=== PATIENT | female | born 1950 | race Caucasian/White ===

== ENCOUNTER 2016-11-03 12:00 | Observation (INO) ==
[2016-11-03] MEDS ORDERED: Nitroglycerin 0.4 MG TAB.SUBL SL PRN (12:23)
--- NOTE | 2016-11-03 12:27 | Emergency Department Note ---
Disposition Clinical Impression: Chest pain Qualifiers: Chest pain type: unspecified Qualified Code(s): R07.9 - Chest pain, unspecified Disposition: Admitted As Inpatient Condition: Good Forms: ED Satisfaction Letter Time of Disposition: 13:44 Chest Pain HPI - General Chief Complaint: ED Chest Pain Stated Complaint: CP x3days Time Seen by Provider: 11/03/16 12:16 Source: patient, family Mode of arrival: ambulatory Limitations: no limitations Vital Signs Reviewed: Yes Nursing Notes Reviewed: Yes - History of Present Illness HPI Narrative: Intermittent left-sided chest pain "like my bra was too tight" over the past 3 days. Worse with exertion. Better with rest. Associated nausea and dyspnea. Pain radiates to her back. History of myocardial infarction last year during which she underwent a cardiac catheterization without stent deployment. She has a prescription for nitroglycerin but did not take. She took an aspirin prehospital Pt complaint: chest pain Onset (ago): day(s) Duration: intermittent Onset: during exertion Pain Location: left chest Severity: moderate Severity scale (1-10): 4 Quality: tightness, aching Pain Radiation: back Improves with: rest Worsens with: exertion Associated symptoms: Reports: nausea, diaphoresis Treatments prior to arrival chest pain: aspirin - Related Data Home Medications Medication Instructions Recorded Confirmed ALPRAZolam [Xanax 0.5 MG Tablet] 0.5 mg PO BID 04/06/16 04/06/16 Aspirin [Lo-Dose Aspirin EC] 81 mg PO DAILY 04/06/16 04/06/16 Guaifenesin/Dm/Pseudoephedrine 250 mg PO PRN PRN 04/06/16 04/06/16 [Capmist Dm Tablet] Levothyroxine [Synthroid] 50 mcg PO 0630 04/06/16 04/06/16 Metformin HCl [Fortamet] 1,000 mg PO DAILY 04/06/16 04/06/16 Metoprolol Succinate 25 mg PO DAILY 04/06/16 04/06/16 Ranitidine HCl [Acid Port Engineer] 150 mg PO BID 04/06/16 04/06/16 Simvastatin [Zocor] 40 mg PO HS 04/06/16 04/06/16 Topiramate [Topiramate ER] 25 mg PO DAILY 04/06/16 04/06/16 levoFLOXacin [Levaquin] 500 mg PO DAILY 04/06/16 04/06/16 Allergies Allergy/AdvReac Type Severity Reaction Status Date / Time Sulfa (Sulfonamide AdvReac Itching Verified 11/03/16 12:05 Antibiotics) All systems ED: reviewed and negative except as stated. Constitutional: Reports: as per HPI Eyes: Reports: as per HPI ENT ED: Reports: as per HPI Cardiovascular: Reports: chest pain Respiratory: Reports: dyspnea Gastrointestinal: Reports: nausea Genitourinary: Reports: as per HPI Musculoskeletal: Reports: back pain Integumentary: Reports: as per HPI Neurological: Reports: as per HPI Psychiatric: Reports: as per HPI Endocrine: Reports: as per HPI Hematological/Lymphatic: Reports: as per HPI Allergic/Immunologic: Reports: as per HPI Chest Pain PMH - Past Medical History Medical history: Reports: arthritis, DVT, diabetes, fibromyalgia, hyperlipidemia , pulmonary embolus Surgical history: Reports: cataract Psychiatric history: Reports: anxiety, depression 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 - Social History Smoking Status: Never smoker Alcohol use: Reports: none Drug use: Reports: none Physical Exam - General Limitations: no limitations General appearance: alert - Head Head exam: atraumatic - Eye Eye exam: Present: normal appearance - ENT ENT exam: normal exam - Neck Neck exam: Present: normal inspection, full ROM - Chest Chest inspection: Present: normal inspection, symmetric chest wall rise - Respiratory Respiratory exam: Present: normal lung sounds bilaterally - Cardiovascular Cardiovascular exam: Present: regular rate, normal rhythm, normal heart sounds - Rectal Exam Rectal exam: Present: deferred - Extremities Exam Extremities exam: Present: normal inspection - Neurological Exam Neurological exam: Present: alert, oriented X3, CN II-XII intact - Psychiatric Psychiatric exam: Present: normal affect, normal mood - Skin Skin exam: Present: warm, dry, intact Course Course Narrative: Patient presents to the emergency department with intermittent exertional chest discomfort over the past 3 days. EKG reviewed by me. Patient appears in no acute distress. Workup including chest x-ray, labs and reevaluation initiated - Reevaluation(s) Reevaluation #1: Patient states her discomfort was relieved with sublingual nitroglycerin Vital Signs Temperature 98 F 11/03/16 12:05 Pulse Rate 72 11/03/16 12:05 Respiratory Rate 20 11/03/16 12:05 Blood Pressure 139/83 11/03/16 12:05 O2 Sat by Pulse Oximetry 98 11/03/16 12:05 Temperature 98 F 11/03/16 12:05 Pulse Rate 72 11/03/16 12:05 Respiratory Rate 20 11/03/16 12:05 Blood Pressure 139/83 11/03/16 12:05 O2 Sat by Pulse Oximetry 98 11/03/16 12:05 Oxygen Delivery Oxygen Delivery Room Air Chest Pain - Medical Records Medical records reviewed: Yes I reviewed the patient's medical records. Catheter lab report dated March 2016 results reviewed by me - Lab Data Lab results reviewed: Yes I reviewed the patient's lab results. Result diagrams: 11/03/16 12:41 11/03/16 12:41 Lab Results 11/03/16 11/03/16 11/03/16 Range/Units 12:41 12:41 12:41 WBC 4.4 (4.3-11.1) K/mcL RBC 4.09 (3.82-4.97) M/mcL Hgb 11.7 (11.5-15.4) g/dL Hct 36.1 (35.3-44.9) % MCV 88.3 (83.0-100.0) fL MCH 28.6 (28.0-33.3) pg MCHC 32.4 (31.6-35.5) g/dL RDW 12.2 (11.5-14.5) % Plt Count 206 (140-400) K/mcL MPV 10.2 (9.4-12.4) fL Immature Gran % 0.5 (0-4) % Seg Neutrophils % 43.4 % Lymphocytes % 44.8 % Monocytes % 10.2 % Eosinophils % 1.1 % Basophils % 0.0 % Neutrophils # 1.9 (1.6-8.9) K/mcL Lymphocytes # 2.0 (0.6-4.6) K/mcL Monocytes # 0.5 (0.0-1.3) K/mcL Eosinophils # 0.1 (0.0-0.6) K/mcL Basophils # 0.0 (0.0-0.2) K/mcL Sodium 140 (136-145) mEq/L Potassium 4.7 H (3.5-4.5) mEq/L Chloride 108 (98-109) mEq/L Carbon Dioxide 28 (19-29) mEq/L BUN 21 H (7-20) mg/dL Creatinine 0.91 (0.57-1.11) mg/dL Est GFR ( Amer) > 60 (> 60) Est GFR (Non-Af Amer) > 60 (> 60) BUN/Creatinine Ratio 23 (6-26) Glucose 105 H (70-99) mg/dL Calculated Osmolality 293 (280-300) Calcium 9.6 (8.6-10.8) mg/dL Total Bilirubin 0.4 (0.2-1.2) mg/dL AST 18 (5-34) Units/L ALT 17 (0-55) Units/L Alkaline Phosphatase 54 (38-126) Units/L Troponin I 0.00 (0-0.03) ng/mL Serum Total Protein 7.3 (6.0-8.3) g/dL Albumin 3.9 (3.5-5.0) g/dL Globulin 3.4 (2.4-3.5) g/dL Albumin/Globulin Ratio 1.1 (1.1-2.2) - Radiology Data Radiology results reviewed: Yes I reviewed the patient's radiology results. - EKG Data EKG attestation: Yes I reviewed and interpreted this EKG. EKG results narrative: Normal sinus rhythm with left axis deviation and left bundle-branch block rate 65 RI 188 QRS 147 QT/QTC 411/423. Heart Score - Score History: Moderately Suspicious EKG: Normal Age: Greater than 65 Risk Factors: 1-2 risk factors Troponin: Less than normal limit HEART Score Total: 4
[2016-11-03 13:16] LABS: Eosinophils # 0.1 K/mcL (0.0-0.6); Eosinophils % 1.1 %; Hematocrit 36.1 % (35.3-44.9); Hemoglobin 11.7 g/dL (11.5-15.4); Immature Granulocytes % 0.5 % (0-4); Lymphocytes % 44.8 %; Mean Corpuscular HGB Conc 32.4 g/dL (31.6-35.5); Mean Corpuscular Hemoglobin 28.6 pg (28.0-33.3); Mean Corpuscular Volume 88.3 fL (83.0-100.0); Mean Platelet Volume 10.2 fL (9.4-12.4); Monocytes # 0.5 K/mcL (0.0-1.3); Monocytes % 10.2 %; Neutrophils # 1.9 K/mcL (1.6-8.9); Platelet Count 206 K/mcL (140-400); Red Blood Count 4.09 M/mcL (3.82-4.97); Red Cell Distribution Width 12.2 % (11.5-14.5); Segmented Neutrophils % 43.4 %
[2016-11-03 13:32] LABS: Alanine Aminotransferase 17 Units/L (0-55); Albumin 3.9 g/dL (3.5-5.0); Albumin/Globulin Ratio 1.1 (1.1-2.2); Alkaline Phosphatase 54 Units/L (38-126); Aspartate Amino Transferase 18 Units/L (5-34); BUN/Creatinine Ratio 23 (6-26); Bilirubin,Total 0.4 mg/dL (0.2-1.2); Blood Urea Nitrogen 21 mg/dL (7-20); Calcium 9.6 mg/dL (8.6-10.8); Carbon Dioxide 28 mEq/L (19-29); Chloride 108 mEq/L (98-109); Globulin 3.4 g/dL (2.4-3.5); Glucose 105 mg/dL (70-99); Osmolality,Calculated 293 (280-300); Potassium 4.7 mEq/L (3.5-4.5); Sodium 140 mEq/L (136-145); Total Protein 7.3 g/dL (6.0-8.3); eGFR For African Americans > 60 (> 60); eGFR For Non-African Americans > 60 (> 60)
[2016-11-03] MEDS ORDERED: Acetaminophen 325 MG TABLET PO PRN (15:36)
[2016-11-03] MEDS ORDERED: Ondansetron ODT 4 MG TAB.RAPDIS SL PRN (15:36)
[2016-11-03] MEDS ORDERED: Naloxone 0.4 MG/ML INJ IVP PRN (15:36)
[2016-11-03] MEDS ORDERED: ALPRAZolam 0.5 MG TABLET PO PRN (15:39)
[2016-11-03] MEDS ORDERED: *HR* Dextrose 50 % in Water (Syg) 50 ML SYRINGE IVP PRN (15:41)
[2016-11-03] MEDS ORDERED: D5% in Water 1,000 ML IVC PRN (15:41)
[2016-11-03] MEDS ORDERED: Dextrose Gel 15 GM PO PRN ×2 (15:41)
[2016-11-03] MEDS ORDERED: *HR* Morphine 2 MG/ML SYRINGE IVP PRN (16:22)
--- NOTE | 2016-11-03 16:25 | Event Note ---
Date of Encounter: 11/03/16 Time of Encounter: 16:23 1. Chest pain with history of CAD, consider stress cardiomyopathy? Continue telemetry, nitroglycerin and morphine as needed Continue aspirin, statin, check lipid panel Follow troponins. Order an echocardiogram, may schedule stress test in the morning 2. Diabetes type 2 not insulin-dependent Hold metformin and continue sliding scale 3. Anxiety, continue Xanax as needed 4. Remote history of DVT 5. History of systolic CHF, no exacerbation Omeprazole for GI prophylaxis and Lovenox for DVT prophylaxis. The patient will be admitted for observation. Full code. Time spent on this admission 40 minutes. H&P to be written by Poonam Mancilla NP
[2016-11-03] MEDS: *HR* OxyCODONE/APAP 10/325 TABLET PO SCH ×2 (17:32→21:56)
--- NOTE | 2016-11-03 18:22 | Internal Med History&Physical ---
<Poonam Mancilla M - Last Filed: 11/04/16 00:12> Date of Encounter: 11/04/16 Time of Encounter: 18:19 Assessment and Plan (1) Chest pain Current visit: Yes Status: Acute Patient reports intermittent left-sided chest pain radiating to her left shoulder accompanied by nausea, shortness of breath, diaphoresis, over the last several days. Pain was relieved by nitroglycerin in the ER. Patient had cardiac catheter in March 2012, which showed normal coronary arteries, an EF of 65%. Previous stress test in November 2015 was negative for ischemia or infarct with EF of 65%. Echocardiogram in November of last year showed EF of 45- 50% with mild global systolic dysfunction. EKG showed normal sinus rhythm with old left bundle branch block and no changes from previous, initial troponin negative at 0.00 Continuous surveillance system monitor Serial troponins Nitro and morphine PRN for chest pain. continue aspirin and statin lipid panel with morning labs. echocardiogram and stress test in the morning. Qualifiers: Chest pain type: unspecified Qualified Code(s): R07.9 - Chest pain, unspecified (2) Type 2 diabetes mellitus Current visit: Yes Status: Acute Well-controlled as evidenced by hemoglobin A1c of 6.0% in December of last year. Hold metformin Diabetic diet Check blood sugars before meals and at bedtime Sliding scale insulin before meals at bedtime Hypoglycemic protocol Qualifiers: Diabetes mellitus complication status: without complication Diabetes mellitus correction insulin use: without correction use Qualified Code(s): E11.9 - Type 2 diabetes mellitus without complications (3) Anxiety Current visit: Yes Status: Acute continue home dose of Xanax as needed. (4) DVT prophylaxis Current visit: Yes Status: Acute anti-embolic stockings Lovenox SQ daily Internal Medicine - H&P: HPI Chief complaint: chest pain Admitted From: Emergency Dept Plans for Post Hospital Care: Home History of present illness: Ms. Harley is a 66 year old female with hypertension, diabetes, history of DVT and PE, COPD presents emergency department today with left-sided chest pain. Patient reports that she has had intermittent pain on the left side of her chest radiating to her left shoulder for the last 3 days. She had accompanying shortness of breath, diaphoresis, and nausea, and palpitations. She reports a headache as well. Patient reports that her pain was relieved with nitroglycerin this morning given in the ED. She denies any vomiting, abdominal pain, numbness or tingling. Evaluation emergency department included an EKG which showed normal sinus rhythm with old left bundle branch block. Troponin was negative at 0.00. Chest x-ray showed no acute process. Labs are grossly normal. On exam, patient alert and oriented, in no acute distress. Heart had regular rate and rhythm, lungs were clear bilaterally to auscultation, no peripheral edema. Past Med Surg Social Fam HX - Past Medical History Medical history: arthritis, DVT, diabetes, fibromyalgia, hyperlipidemia, hypertension, osteoporosis, pulmonary embolus Psychiatric history: anxiety, depression - Past Surgical History Surgical History: cataract, hysterectomy, pacemaker - Social History Smoking Status: Never smoker Smokeless Tobacco Status: No Alcohol use: none Drug use: none - Family History Mother Living Status: Cause of : lung CA Hx Family Cancer: Yes Internal Medicine - H&P: Meds ALPRAZolam [Xanax 0.5 MG Tablet] 0.5 mg PO TID PRN 04/06/16 [History] Aspirin [Lo-Dose Aspirin EC] 81 mg PO DAILY 04/06/16 [History] Levothyroxine [Synthroid] 50 mcg PO 0630 04/06/16 [History] Metformin HCl [Fortamet] 500 mg PO DAILY 04/06/16 [History] Metoprolol Succinate 25 mg PO DAILY 04/06/16 [History] Ranitidine HCl [Acid Top Knitter] 150 mg PO BID 04/06/16 [History] Simvastatin [Zocor] 40 mg PO HS 04/06/16 [History] Topiramate [Topiramate ER] 25 mg PO DAILY 04/06/16 [History] Meloxicam [Mobic] 15 mg PO DAILY 11/03/16 [History] Oxycodone HCl/Acetaminophen [Percocet 10-325 mg Tablet] 1 tab PO QID 11/03/16 [ History] Allergies Sulfa (Sulfonamide Antibiotics) Adverse Reaction (Verified 11/03/16 12:05) Itching All Systems PM: A 10-system review of systems was performed and is negative for pertinent findings except as documented above in the HPI. - Constitutional Constitutional: no chills, no fever(s), no night sweats - EENT Eyes: no change in vision, no discharge, no pain, no photophobia Ears: no ear discharge, no ear pain, no tinnitus Nose, mouth and throat: no dysphagia, no nasal discharge, no neck pain, no sore throat - Cardiovascular Cardiovascular ROS IM: chest pain, diaphoresis, dyspnea, dyspnea on exertion, palpitations, no lightheadedness, no syncope - Respiratory Respiratory: no cough, no dyspnea, no wheezing, no excessive phlegm production - Gastrointestinal Gastrointestinal: nausea, no abdominal pain, no diarrhea, no hematemesis, no hematochezia, no melena, no vomiting - Genitourinary Genitourinary: no change in urinary stream, no dysuria, no flank pain, no hematuria - Musculoskeletal Musculoskeletal ROS IM: no numbness, no tingling - Integumentary Integumentary IM: no rash, no unusual bruising - Neurological Neurological ROS: no confusion, no convulsions, no focal weakness, no numbness, no tingling, no tremor(s) - Hematologic/Lymphatic Hematologic/Lymphatic: no easy bruising - Constitutional Vitals: Temp Pulse Resp BP Pulse Ox 97.9 F 60 16 123/66 97 11/03/16 16:32 11/03/16 16:32 11/03/16 16:32 11/03/16 16:32 11/03/16 16:32 General appearance: Present: A&O X 3, pleasant, no acute distress - Head Head exam: Present: atraumatic, normocephalic - Eye Eye exam: Present: PERRL, conjuntiva pink, sclera anicteric Pupils: Present: PERRL - Neck Neck exam general surgery: Present: supple, trachea midline. Absent: lymphadenopathy - Respiratory Respiratory exam: Present: CTAB. Absent: accessory muscle use, rales, rhonchi, wheezes - Cardiovascular Cardiovascular exam: Present: RRR, +S1, +S2. Absent: diastolic murmur, gallop, rubs, systolic murmur - GI/Abdominal GI/Abdominal exam: Present: normal bowel sounds, soft, no peritoneal signs. Absent: distended, tenderness - Extremities Exam Extremities exam: Present: warm, radial pulses palpable and symetrical. Absent : calf tenderness, cyanotic, pedal edema - Neurological Exam Neurological exam: Present: CN II-XII intact, oriented X3, no focal deficits. Absent: facial droop, speech deficit - Skin Skin exam: Present: dry, intact Internal Med - H&P Results - Labs CBC & Chem 7: 11/03/16 12:41 11/03/16 12:41 Labs: Chest X-Ray 11/03/16 12:23 IMPRESSION: No acute process. D/ / Leo Valderrama MD / Leo Valderrama MD Interpreting Provider: Leo Valderrama MD <Rodolfo Kaur H - Last Filed: 11/04/16 10:21> Date of Encounter: 11/04/16 Internal Medicine - H&P: HPI History of present illness: Ms. Harley is a 66 year old female All Systems PM: A 10-system review of systems was performed and is negative for pertinent findings except as documented above in the HPI. - Constitutional Vitals: Temp Pulse Resp BP Pulse Ox 97.7 F 57 18 116/64 97 11/04/16 04:44 11/04/16 04:44 11/04/16 09:46 11/04/16 09:46 11/04/16 04:44 Internal Med - H&P Results - Labs CBC & Chem 7: 11/04/16 01:56 11/04/16 01:56 Labs: Short CBC 11/04/16 Range/Units 01:56 WBC 4.0 L (4.3-11.1) K/mcL Hgb 10.7 L (11.5-15.4) g/dL Hct 33.8 L (35.3-44.9) % Plt Count 158 (140-400) K/mcL Neutrophils # 1.4 L (1.6-8.9) K/mcL BMP 11/04/16 01:56 Sodium 140 Potassium 3.9 Chloride 108 Carbon Dioxide 27 BUN 19 Creatinine 0.86 Glucose 148 H Calcium 9.2 Cardiac Enzymes 11/03/16 11/04/16 Range/Units 18:37 01:56 Troponin I 0.00 0.00 (0-0.03) ng/mL - Attending Attestation 1. Chest pain with history of CAD, consider stress cardiomyopathy? Continue telemetry, nitroglycerin and morphine as needed Continue aspirin, statin, check lipid panel Follow troponins. Order an echocardiogram, may schedule stress test in the morning 2. Diabetes type 2 not insulin-dependent Hold metformin and continue sliding scale 3. Anxiety, continue Xanax as needed 4. Remote history of DVT 5. History of systolic CHF, no exacerbation Omeprazole for GI prophylaxis and Lovenox for DVT prophylaxis. The patient will be admitted for observation. Full code. Time spent on this admission 40 minutes. I have personally performed a face to face evaluation on this patient. I have reviewed and agree with the care plan.
[2016-11-03] MEDS: Insulin LISPRO 300 UNITS/3 ML VIAL SQ SCH (19:58)
[2016-11-03] MEDS ORDERED: Insulin LISPRO 300 UNITS/3 ML VIAL SQ SCH (21:00)
[2016-11-03] MEDS ORDERED: Famotidine 20 MG TABLET PO SCH (21:00)
[2016-11-04 02:31] LABS: Basophils % 0.2 %; Eosinophils # 0.1 K/mcL (0.0-0.6); Eosinophils % 1.2 %; Hematocrit 33.8 % (35.3-44.9); Hemoglobin 10.7 g/dL (11.5-15.4); Immature Granulocytes % 0.2 % (0-4); Lymphocytes # 2.2 K/mcL (0.6-4.6); Lymphocytes % 54.2 %; Mean Corpuscular HGB Conc 31.7 g/dL (31.6-35.5); Mean Corpuscular Hemoglobin 27.9 pg (28.0-33.3); Mean Platelet Volume 10.8 fL (9.4-12.4); Monocytes # 0.3 K/mcL (0.0-1.3); Monocytes % 8.5 %; Neutrophils # 1.4 K/mcL (1.6-8.9); Platelet Count 158 K/mcL (140-400); Red Blood Count 3.84 M/mcL (3.82-4.97); Segmented Neutrophils % 35.7 %
[2016-11-04 02:45] LABS: BUN/Creatinine Ratio 22 (6-26); Blood Urea Nitrogen 19 mg/dL (7-20); Calcium 9.2 mg/dL (8.6-10.8); Carbon Dioxide 27 mEq/L (19-29); Chloride 108 mEq/L (98-109); Glucose 148 mg/dL (70-99); Osmolality,Calculated 295 (280-300); Potassium 3.9 mEq/L (3.5-4.5); Sodium 140 mEq/L (136-145); eGFR For African Americans > 60 (> 60); eGFR For Non-African Americans > 60 (> 60)
[2016-11-04 02:46] LABS: Chol/HDL Ratio 3.4 (0-4.9)
[2016-11-04] MEDS ORDERED: *HR* Enoxaparin 40 MG/0.4 ML SYRINGE SQ SCH (06:00)
[2016-11-04] MEDS ORDERED: Regadenoson 0.4 MG/5 ML SYRINGE IVP ONE (07:43)
[2016-11-04] MEDS ORDERED: *HR* OxyCODONE/APAP 10/325 TABLET PO PRN (08:49)
[2016-11-04] MEDS ORDERED: *HR* Morphine 2 MG/ML SYRINGE IVP PRN (08:49)
[2016-11-04] MEDS ORDERED: Famotidine 20 MG TABLET PO SCH (08:50)
[2016-11-04] MEDS ORDERED: Topiramate 25 MG TABLET PO SCH (09:00)
[2016-11-04] MEDS ORDERED: Aspirin Enteric Coated 81 MG Tablet PO SCH (09:00)
[2016-11-04] MEDS ORDERED: Metoprolol XL (24 HR) Succ 25 MG TAB.ER.24H PO SCH (09:00)
[2016-11-04] MEDS: Insulin LISPRO 300 UNITS/3 ML VIAL SQ SCH (09:39)
[2016-11-04 09:51] VITALS: BP 116/64
--- NOTE | 2016-11-04 10:32 | Nuclear Medicine Stress Report ---
Regadenoson Nuclear Stress Name: Aretha Harely Date of Study: 11/04/2016 Date: 1950 Ht: 74.0 in Medical Record#: [id number] Age: 66 Wt: 162.0 lb Gender: Female Order #: [id number] Location: [facility] Room: [facility] [place] Supervising Provider: Kate Epperson CNP Reading Physician: Lety Rees DO Ordering Physician: Rodolfo Kaur MD Primary Care Physician: Michael Samuels MD Stress Technologist: Cris Cunningham RRT Respite Worker: Jabier Peace Indications: Chest Pain Impression: Perfusion imaging was negative for ischemia or infarct. Low level exercise ECG is non-diagnostic for ischemia due to baseline abnormalities. Gated EF = >70%. History: Diabetes Stress Test Summary: Stress Test Type: Low level pharmacologic Regadenoson 0.4mg/5ml given IV Baseline Information: Initial Heart Rate: 63 Blood Pressure: 110/76 Stress Information: Test Terminated Due to (primary): As per protocol Maximum Blood Pressure: 90/66 Maximum Heart Rate: 126 Percent Maximum Heart Rate Achieved: 88 Double Product: [id number] METS Reached: 2.1 Symptoms: No chest symptoms Nuclear Summary: SPECT myocardial perfusion imaging using [id number] Sestamibi given intravenously was performed at rest and following cardiac stress testing. The resting images were obtained following initial dose of 10.8 mCi. Following stress an additional dose of 32.9 mCi was given at peak exercise or 30 seconds post regadenoson infusion. Medication Given: Time Medication Dose Units Route Findings: Stress Note * Resting ECG demonstrated normal sinus rhythm with LBBB, poor R wave progression with nonspecific ST-T wave abnormalities. * Pharmacologic stress ECG is non diagnostic for ischemia due to baseline abnormalities. Also noticed is artifact during the procedure. * No arrhythmias were noted during stress. * Patient had no chest pain during stress. Hemodynamic responses * Blood pressure decreased with pharmacologic infusion, which can be a normal side effect. Starting BP 110/76 mmHg decreasing to 88/60 mmHg which improved with IV fluids. Study Quality * Study quality was fair. TID * No evidence of transient ischemic dilatation. Lung Uptake * There is no evidence of increase lung uptake. Left Ventricle * The left ventricle is not dilated. PERFUSION *Normal rest and stress perfusion without evidence for ischemia or infarct. Gated EF > 70% * Gated EF > 70%. Updated by Lety Rees on 11/04/2016 10:21:28 AM electronically signed on 11/04/2016 10:24:44 AM with status of Final
--- NOTE | 2016-11-04 10:44 | Discharge Summary ---
<MarleenAdam oliveira - Last Filed: 11/04/16 11:48> Date of Encounter: 11/04/16 Time of Encounter: 10:41 - Discharge Diagnosis (1) Chest pain Priority: Primary Status: Acute Comments: The causes include musculoskeletal, anxiety, cardiac workup negative for acute process. Qualifiers: Chest pain type: intercostal pain Qualified Code(s): R07.82 - Intercostal pain (2) Anxiety Priority: Primary Status: Acute Comments: Chronic anxiety with recent exacerbation including 2 recent deaths in the family (3) Type 2 diabetes mellitus Priority: Primary Status: Chronic Qualifiers: Diabetes mellitus complication status: without complication Diabetes mellitus director long term care insulin use: without fdc use Qualified Code(s): E11.9 - Type 2 diabetes mellitus without complications (4) COPD (chronic obstructive pulmonary disease) Priority: Secondary Status: Chronic Qualifiers: COPD type: unspecified COPD Qualified Code(s): J44.9 - Chronic obstructive pulmonary disease, unspecified (5) DVT prophylaxis Priority: Primary Status: Acute - Discharge Medications Home Medications: ALPRAZolam [Xanax 0.5 MG Tablet] 0.5 mg PO TID PRN 04/06/16 [History] Aspirin [Lo-Dose Aspirin EC] 81 mg PO DAILY 04/06/16 [History] Levothyroxine [Synthroid] 50 mcg PO 0630 04/06/16 [History] Metformin HCl [Fortamet] 500 mg PO DAILY 04/06/16 [History] Metoprolol Succinate 25 mg PO DAILY 04/06/16 [History] Ranitidine HCl [Acid Cleaning Professional] 150 mg PO BID 04/06/16 [History] Simvastatin [Zocor] 40 mg PO HS 04/06/16 [History] Topiramate [Topiramate ER] 25 mg PO DAILY 04/06/16 [History] Meloxicam [Mobic] 15 mg PO DAILY 11/03/16 [History] Oxycodone HCl/Acetaminophen [Percocet 10-325 mg Tablet] 1 tab PO QID 11/03/16 [ History] Allergies/Adverse Reactions: Allergies Sulfa (Sulfonamide Antibiotics) Adverse Reaction (Verified 11/03/16 12:05) Itching Procedures/tests Complete & Pending: Procedures Performed prior 72 hours Category Date Time Status NM dilshad perf SPECT multi [NM] Routine Exams 11/03/16 05:50 Taken ECG 12 lead ECG [ECG] AM 0600 Y 11/04/16 06:00 Ordered EV echocardiogram Routine Y 11/03/16 16:21 Completed SP pharm nuclear stress Routine Y 11/04/16 07:15 Completed Date of admission: 11/03/16 14:23 Primary care physician: Michael Samuels MD Discharging clinician: Adam Ortega Anticipated date of discharge: 11/04/16 - Patient Status Disposition: Home, Self-Care Condition: Good Functional capacity at discharge: independent ambulation Overall status at discharge: patient is back to baseline - Discharge Instructions Follow Up With: Michael Samuels MD [Primary Care Provider] - 11/11/16 5:00 pm Additional Instructions: Please follow up to primary care physician and report back to the ER if you are symptoms should worsen or return. - Diet and Activity Activity: increase activity as tolerated, resume usual activities as tolerated Diet: advance to your usual diet Hospital course: Ms. Harley is a 66 year old female with past medical history of AR without stent placement, hypertension, diabetes, COPD, deep venous thrombosis with associated pulmonary embolus and presents to the emergency department with chief complaint of chest pain located in her left chest with radiation to left shoulder and associated shortness of breath, diaphoresis, palpitations, headache. She denies any symptoms of vomiting, abdominal pain, fevers, chills. The emergency department EKG revealed normal sinus rhythm with old left bundle branch block, troponins were negative at 0.00, chest x-ray was not significant for any acute pathology, as are significant for an elevated potassium of 4.7 and elevated BUN at 21. Her labs were within normal limits. She was given nitroglycerin which relieved her symptoms. Heart score was calculated and was equal to 4. She is admitted to medicine service for chest pain rule out. During hospital stay, troponins remained negative x 3. She also received cardiology consult with nuclear stress test which showed no significant ischemia or infarct and a gated EF of greater than 70%. Patient states that her symptoms have since resolved since admission. She has no current complaints this time. Also etiologies for chest pain include GI causes, anxiety , musculoskeletal. She will be discharged home in stable medical condition, instructed to follow up with her primary care physician. - Time Spent with Patient Total time spent providing and/or coordinating discharge services: 20 mins Less than 30 minutes - Constitutional Vitals: Temp Pulse Resp BP Pulse Ox 97.7 F 57 18 116/64 97 11/04/16 04:44 11/04/16 04:44 11/04/16 09:46 11/04/16 09:46 11/04/16 04:44 General appearance: Present: A&O X 3, pleasant, no acute distress Exam: Gen.: Vitals noted. No acute distress. AAOx3 HEENT: PERRL/EOMI, oropharynx clear, Normocephalic, atraumatic Neck: Supple. No adenopathy. Cardiac: RRR, no murmur, +S1/S2. Reproducible chest pain substernally Pulmonary: CTA bilaterally, no wheezes, rales or rhonchi, equal chest expansion Abdomen: soft, nontender, BS noted, no guarding Back: Nontender throughout. MSK: ROM intact, no joint swelling noted Extremities: no BLE edema, nontender calf, no cyanosis or clubbing Neuro: A&Ox3, moves all extremities, no focal deficits Psych: Appropriate mood and behavior <Rodolfo Kaur - Last Filed: 11/04/16 11:49> Date of Encounter: 11/04/16 Procedures/tests Complete & Pending: Procedures Performed prior 72 hours Category Date Time Status NM dilshad perf SPECT multi [NM] Routine Exams 11/03/16 05:50 Taken ECG 12 lead ECG [ECG] AM 0600 Y 11/04/16 06:00 Ordered EV echocardiogram Routine Y 11/03/16 16:21 Completed SP pharm nuclear stress Routine Y 11/04/16 07:15 Completed Date of admission: 11/03/16 14:23 Primary care physician: Michael Samuels MD Hospital course: Ms. Harley is a 66 year old female - Time Spent with Patient Total time spent providing and/or coordinating discharge services: - Constitutional Vitals: Temp Pulse Resp BP Pulse Ox 97.7 F 57 18 116/64 97 11/04/16 04:44 11/04/16 04:44 11/04/16 09:46 11/04/16 09:46 11/04/16 04:44 - Attending Attestation Negative stress tests OK discharge I examined this patient and my medical decision-making was reviewed with the Resident Physician. I agree with the documented findings, disposition and treatment plan as described except to the extent set forth below.
--- NOTE | 2016-11-05 06:41 | Electrocardiograph Report ---
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
== END 2016-11-04 11:25 | disposition home or self-care (01) ==
LOC: EMEROO 12:00 → 2ANU 12:00
PROVIDERS: ADMIT Internal Medicine; ATTEND Internal Medicine